=== PATIENT | female | born 1970 | race Caucasian/White ===

== ENCOUNTER 2021-07-31 16:06 | Emergency (ER) | payer OTHER, SELFPAY ==
--- NOTE | ~2021-07-31 | XR_ITS ---
EXAMINATION: XR chest 1V CLINICAL INFORMATION: Shortness of breath COMPARISON: None TECHNIQUE: XR chest 1V Tubes and lines: None Lungs and pleura: Both lungs are clear. Heart and mediastinum: The mediastinum is within normal limits.. Bones/soft tissue: Skeletal structures included are normal for patient's age. XR/XR chest 1V IMPRESSION: Normal chest x-ray.
[2021-07-31 17:38] VITALS: BP 128/64; PULSE 114; RESP 20; TEMP 1002.2; TEMP 539; O2SAT 97; BMI 32.6
[2021-07-31 18:17] LABS: Basophils Absolute Auto 0.1 X10*3/uL (0.0-0.2); Basophils Percent Auto 0.2 % (0-2); Hematocrit 34.1 % (37.0-47.0); Hemoglobin 11.6 g/dl (12.0-16.0); Lymphocytes Absolute Auto 1.5 X10*3/uL (1.2-4.9); Lymphocytes Percent Auto 7.4 % (20-40); MANUAL DIFF FLAG SCAN; Mean Corpuscular Hemoglobin 29.2 pg (27.0-33.0); Mean Corpuscular Volume 85.9 fL (80.0-98.0); Monocytes Absolute Auto 1.6 X10*3/uL (0.1-1.2); Monocytes Percent Auto 7.6 % (2-11); Neutrophils Absolute Auto 17.1 x10*3/uL (2.0-8.3); Neutrophils Percent Auto 83.8 % (45-73); Platelet Count 341 X10*3/uL (160-400); Red Blood Count 3.97 X10*6/uL (4.20-5.50); Red Cell Distribution Width 12.2 % (11.0-16.0); SCAN SMEAR FLAG 1; White Blood Count 20.4 X10*3/uL (4.8-10.8)
[2021-07-31 18:26] LABS: COVID-19 Test Negative (Negative); IDNOW Serial# 9DD0AD1C
[2021-07-31 18:29] LABS: Anion Gap 15 (12-20); Blood Urea Nitrogen 28 mg/dL (9-16); Calcium 8.8 mg/dL (8.4-10.2); Carbon Dioxide 24 mmol/L (22-29); Chloride 100 mmol/L (96-108); Creatinine Clr Calc Pharmacy 62.9; Estimated Glomerular Filt Rate 43; Glucose Random 117 mg/dL (60-115); Potassium 3.4 mmol/L (3.3-5.1); Sodium 136 mmol/L (135-145)
[2021-07-31 18:35] LABS: SLIDE REVIEW VERIFIED
--- NOTE | 2021-07-31 21:46 | ED.GENADULT ---
HPI - General Adult General Chief complaint: Dyspnea Stated complaint: Vomiting/Fever Time Seen by Provider: 07/31/21 21:44 Source: patient Mode of arrival: ambulatory Limitations: no limitations History of Present Illness HPI narrative: Patient has been coughing for last 7 days mostly mucoid phlegm followed by vomiting unable to eat anything solid. ++ fever and chest tightness patient already been vaccinated against COVID no significant abdominal pain urinary complaints no diarrhea no other family member is sick Related Data Previous Rx's Medication Instructions Recorded albuterol sulfate 90 mcg/actuation 2 puff INHALATION Q4-6H PRN #8.5 g 08/01/21 aerosol inhaler (ProAir HFA) cefuroxime axetil 500 mg tablet 500 mg PO BID 10 Days #20 tab 08/01/21 codeine 10 mg-guaifenesin 100 mg/5 10 ml PO Q4-6H PRN #237 ml 08/01/21 mL oral liquid doxycycline hyclate 100 mg tablet 100 mg PO BID #20 tab 08/01/21 Allergies Allergy/AdvReac Type Severity Reaction Status Date / Time latex [LATEX] Allergy Unknown RASH Unverified 05/08/20 15:45 Review of Systems Review of Systems: Yes all other systems are reviewed and are negative [facility] Social History Social History Advance Directives: No Advance Directives Information Provided: No Patient : No Physical Exam Vital Signs: Vital Signs: Last Vital Signs Temp 98.7 F 08/01/21 01:10 Pulse 96 08/01/21 01:10 Resp 18 08/01/21 01:10 BP 123/68 08/01/21 01:10 Pulse Ox 99 08/01/21 01:10 BMI result Body Mass Index 32.6 Appearance: Alert. Oriented X3. No acute distress. Eyes: PERRLA, No Nystagmus ENT: Pharynx normal. Oral Mucosa moist Neck: Normal inspection. Neck supple. CVS: Normal heart rate and rhythm. Pulses normal. Respiratory: No respiratory distress. Prolonged expiration no wheezing/rales/rhonchi Abdomen: Soft and nontender. Bowel sounds are present, no mass palpable, no CVA tenderness Skin: Skin warm and dry. Normal skin color. Normal skin turgor. Extremities: No lower extremity edema. No calf tenderness Neuro: Oriented X 3. No motor deficit. Medical Decision Making MDM Narrative Medical decision making narrative: Patient with bronchitis with fever cough chest x-ray negative COVID negative was given IV Rocephin for increased leukocytosis likely developing pneumonia will discharge patient home on Ceftin and doxycycline advised to follow with PCP not better Lab Data Lab results reviewed: Yes I reviewed the patient's lab results. Result diagrams: 07/31/21 18:04 07/31/21 18:04 Labs: Lab Results 07/31/21 07/31/21 07/31/21 Range/Units 18:04 18:04 18:04 WBC 20.4 H (4.8-10.8) X10*3/uL RBC 3.97 L (4.20-5.50) X10*6/uL Hgb 11.6 L (12.0-16.0) g/dl Hct 34.1 L (37.0-47.0) % MCV 85.9 (80.0-98.0) fL MCH 29.2 (27.0-33.0) pg MCHC 34.0 (31.0-35.0) g/dl RDW 12.2 (11.0-16.0) % Plt Count 341 (160-400) X10*3/uL MPV 11.0 (9.4-12.3) fL Immature Gran % (Auto) 1.0 H (0.0-0.4) % Neut % (Auto) 83.8 H (45-73) % Lymph % (Auto) 7.4 L (20-40) % [place] % (Auto) 7.6 (2-11) % Eos % (Auto) 0.0 (0-4) % Baso % (Auto) 0.2 (0-2) % Lymph # (Auto) 1.5 (1.2-4.9) X10*3/uL [place] # (Auto) 1.6 H (0.1-1.2) X10*3/uL Eos # (Auto) 0.0 (0.0-0.4) X10*3/uL Baso # (Auto) 0.1 (0.0-0.2) X10*3/uL Abs Immat Gran (auto) 0.20 H (0.00-0.03) X10*3/uL Absolute Neuts (auto) 17.1 H (2.0-8.3) x10*3/uL Absolute Nucleated RBC 0.000 (0.0-0.012) X10*3/uL Nucleated RBC % (auto) 0.0 (0.0-0.2) /100WBC Smear Tech's Comments VERIFIED Sodium 136 (135-145) mmol/L Potassium 3.4 (3.3-5.1) mmol/L Chloride 100 (96-108) mmol/L Carbon Dioxide 24 (22-29) mmol/L Anion Gap 15 (12-20) BUN 28 H (9-16) mg/dL Creatinine 1.32 (0.5-1.4) mg/dL Estim Creat Clear Calc 62.9 Estimated GFR 43 Random Glucose 117 H (60-115) mg/dL Calcium 8.8 (8.4-10.2) mg/dL COVID-19 (CARLO) Negative (Negative) COVID-19 Clin Com See Note Discharge Plan Discharge Clinical Impression: Acute bronchitis Qualifiers: Bronchitis organism: unspecified organism Qualified Code(s): J20.9 - Acute bronchitis, unspecified Patient Disposition: Home, Self-Care Instructions: Acute Bronchitis (ED) Additional Instructions: Use albuterol inhaler every 4-6 hours as advised Antibiotic as advised Tylenol/Motrin as advised Follow with PCP if not better Prescriptions: New doxycycline hyclate 100 mg tablet 100 mg PO BID Qty: 20 RF: 0 cefuroxime axetil 500 mg tablet 500 mg PO BID 10 Days Qty: 20 RF: 0 codeine-guaifenesin 10-100 mg/5 mL liquid 10 ml PO Q4-6H PRN (Reason: cough) Qty: 237 RF: 0 albuterol sulfate [ProAir HFA] 90 mcg/actuation HFA aerosol inhaler 2 puff inhalation Q4-6H PRN (Reason: Wheezing) Qty: 8.5 RF: 0
[2021-07-31] MEDS: 0.9 % Sodium Chloride 1,000 ML 999 ML IVCONT (22:40)
[2021-07-31] MEDS: cefTRIAXone sodium 1 GM in 0.9 % Sodium Chloride 50 ML IV (23:13)
[2021-07-31] MEDS: guaiFEN/Codeine SF 200/20/10ML 10 ML LIQUID PO (23:13)
[2021-07-31] MEDS: ondansetron HCL 4 MG/2 ML VIAL IVPUSH (23:13)
[2021-07-31] MEDS: Albuterol/Iprat 2.5/0.5MG 3 ML AMPUL.NEB INHALE (23:20)
[2021-07-31 23:21] VITALS: PULSE 114; O2SAT 97
[2021-07-31 23:48] VITALS: BP 113/71; PULSE 103; RESP 16; TEMP 37.5; O2SAT 98
[2021-08-01 01:10] VITALS: BP 123/68; PULSE 96; RESP 18; TEMP 37.1; O2SAT 99
== END 2021-08-01 01:29 | disposition home or self-care (01) ==
PROVIDERS: Emergency Provider Internal Medicine; PCP Internal Medicine
DX: J20.9 Acute bronchitis, unspecified (principal); R06.02 Shortness of breath; R05.9 Cough, unspecified; Z20.822 Contact with and (suspected) exposure to COVID-19; Z79.899 Other long term (current) drug therapy
CPT/HCPCS: 36415; 71045; 80048; 85025; 87635; 94640; 96365; 96375; 99284; J0696; J2405

== ENCOUNTER 2023-09-07 08:31 | Emergency (ER) | payer MEDICAID, SELFPAY ==
--- NOTE | 2023-09-07 | ECG_ITS ---
Test Reason : CHEST PAIN Blood Pressure : / mmHG Vent. Rate : 074 BPM Atrial Rate : 074 BPM P-R Int : 136 ms QRS Dur : 090 ms QT Int : 394 ms P-R-T Axes : 038 050 011 degrees QTc Int : 437 ms Sinus rhythm with Premature atrial complexes (vs PVC) Otherwise normal ECG No previous ECGs available Referred By: Generic ED Physician Electronically Signed By:SRINI PRECIADO
--- NOTE | ~2023-09-07 | XR_ITS ---
EXAMINATION: XR CHEST CLINICAL INFORMATION: Pain. COMPARISON: Chest 07/31/2021 TECHNIQUE: Frontal view of the chest was obtained. FINDINGS: No significant abnormality is noted involving the heart, lungs, mediastinum, bony thorax or soft tissues. XR/XR chest 1V IMPRESSION: Unremarkable chest examination.
[2023-09-07 08:58] VITALS: BP 148/85; PULSE 79; RESP 20; TEMP 36.4; O2SAT 98; BMI 39.3
[2023-09-07 09:36] LABS: MANUAL DIFF FLAG NO
[2023-09-07 09:39] LABS: Basophils Percent Auto 0.4 % (0-2); Eosinophils Absolute Auto 0.1 X10*3/uL (0.0-0.4); Eosinophils Percent Auto 2.7 % (0-4); Hematocrit 35.2 % (37.0-47.0); Hemoglobin 11.3 g/dl (12.0-16.0); Imm Gran Abs Auto 0.01 X10*3/uL (0.00-0.03); Imm Gran Pct Auto 0.2 % (0.0-0.4); Lymphocytes Absolute Auto 1.5 X10*3/uL (1.2-4.9); Lymphocytes Percent Auto 28.2 % (20-40); Mean Corpuscular HGB Conc 32.1 g/dl (31.0-35.0); Mean Corpuscular Hemoglobin 27.6 pg (27.0-33.0); Mean Corpuscular Volume 85.9 fL (80.0-98.0); Monocytes Absolute Auto 0.3 X10*3/uL (0.1-1.2); Neutrophils Absolute Auto 3.3 x10*3/uL (2.0-8.3); Neutrophils Percent Auto 63.5 % (45-73); Platelet Count 262 X10*3/uL (160-400); Red Cell Distribution Width 12.1 % (11.0-16.0); White Blood Count 5.2 X10*3/uL (4.8-10.8)
[2023-09-07 09:50] LABS: COVID-19 Test Negative (Negative); IDNOW Serial# 152EDE1D
[2023-09-07 09:57] LABS: Alanine Aminotransferase 14 U/L (0-31); Albumin Level 4.1 g/dL (3.5-5.0); Alkaline Phosphatase 79 U/L (39-117); Anion Gap 11 (12-20); Aspartate Amino Transferase 13 U/L (5-31); Bilirubin Total 0.4 mg/dL (0.0-1.0); Blood Urea Nitrogen 14 mg/dL (9-16); Calcium 9.1 mg/dL (8.4-10.2); Carbon Dioxide 26 mmol/L (22-29); Chloride 107 mmol/L (96-108); Creatinine Clr Calc Pharmacy 116.4; Estimated Glomerular Filt Rate > 60; Glucose Random 93 mg/dL (60-115); Magnesium 1.7 mg/dL (1.6-2.6); Potassium 3.8 mmol/L (3.3-5.1); Sodium 140 mmol/L (135-145); Total Protein 7.3 g/dL (6.5-8.0)
[2023-09-07 10:05] LABS: Troponin-I High Sensitivity < 2.7 ng/L (<3.5-17.0)
[2023-09-07 10:42] VITALS: BP 171/75; PULSE 77; RESP 18; TEMP 36.2; O2SAT 97
--- NOTE | 2023-09-07 11:01 | ED_ITS ---
HPI - Chest Pain General Chief Complaint: Chest Pain Stated Complaint: R Arm Pain No Injury Time Seen by Provider: 09/07/23 10:56 Source: patient Mode of arrival: ambulatory Limitations: no limitations History of Present Illness HPI narrative: 53 yo female with PMH of migraines, asthma who notes worsening headaches recently typical of migraines but last night at work she noted R arm pain no numbness or weakness and she just felt off. She is under stress. She has not had her BP checked regularly and has not gone to the doctor in a while. She is cutting down her cigarettes. She denies CP/SOB. She notes she has not been dx with HTN but has strong fam hx. She plans now to follow up with PCP. She walks regularly to work and has no symptoms. BP at work prior to arrival was 180/100s complaint: other (high BP, R arm pain) Onset (ago): day(s) (at work last night.) Timing of current episode: other (improving) Prior episodes: No Onset: during rest Pain location: other (R arm) Pain radiation: none Severity: moderate Quality: aching Relieving factors: nothing Exacerbating factors: nothing Context: other (found to be HTNive at home) Associated symptoms: other (headache L eye photophobia hx of migraines) Treatment prior to arrival: none Related Data Previous Rx's Medication Instructions Recorded albuterol sulfate 90 mcg/actuation 2 puff inhalation Q4-6H PRN 08/01/21 aerosol inhaler (ProAir HFA) Wheezing #8.5 grams cefuroxime axetil 500 mg tablet 500 mg PO BID 10 days #20 tabs 08/01/21 codeine 10 mg-guaifenesin 100 mg/5 10 ml PO Q4-6H PRN cough #237 mL 08/01/21 mL oral liquid doxycycline hyclate 100 mg tablet 100 mg PO BID #20 tabs 08/01/21 blood pressure test kit-large #1 ea 09/07/23 hydrochlorothiazide 12.5 mg tablet 12.5 mg PO DAILY #30 tabs 09/07/23 Allergies Allergy/AdvReac Type Severity Reaction Status Date / Time latex [LATEX] Allergy Unknown RASH Verified 09/07/23 09:05 Review of Systems 2 Review of Systems: Constitutional : No Fever, No Chills, No Fatigue ENT/Mouth : No sore throat, No Rhinorrhea Eyes: No Eye Pain, No Swelling, No Redness Cardiovascular : No Chest Pain, No SOB, No Dyspnea on Exertion Respiratory : No Cough, No Sputum Gastrointestinal : No Nausea, No Vomiting, No Diarrhea, No abdominal Pain Genitourinary : No Dysuria, No Urinary Frequency, No Hematuria, Musculoskeletal : pos joint pain, No Myalgias, No Joint Swelling Skin : No Skin Lesions, No rash Neuro : No Weakness, No Numbness, No Dizziness, positive Headache Psych : No Anxiety/Panic, No Depression All other systems reviewed and are negative [facility] Past Medical History Source: old records reviewed Onset Date is defined in the Problem List Problems that require an onset date and time if occurred within 24 hrs of arrival to the ED Aortic Dissection and Rupture; Neurologic impairment; Cardiopulmonary Arrest; Endotracheal Intubation; Insertion or Replacement of Mechanical Circulatory Assist Device Medical History Migraine Asthma Social History Social History (Updated 09/07/23 @ 11:36 by Sosa José DO) Unable to assess alcohol history related to: Unknown Patient Tobacco Use Status: Current someday Tobacco user Smoked in Last 30 Days: Yes Use of substances other than those prescribed or required for medical reasons: No Advance Directives: No Advance Directives Information Provided: No Patient : No Physical Exam 2 Vital Signs: Vital Signs: Last Vital Signs Temp 98.1 F 09/07/23 11:07 Pulse 76 09/07/23 11:07 Resp 20 09/07/23 11:07 BP 170/82 H 09/07/23 11:07 Pulse Ox 98 09/07/23 11:07 O2 Del Method Room Air 09/07/23 11:07 BMI result Body Mass Index 39.3 Appearance: Alert. Oriented X3. No acute distress. Eyes: Pupils equal, round and reactive to light. ENT: Pharynx normal. Neck: Normal inspection. Neck supple. CVS: Normal heart rate and rhythm. Pulses normal. Respiratory: No respiratory distress. Breath sounds normal. Abdomen: Soft and non-tender. Skin: Skin warm and dry. Normal skin color. Normal skin turgor. Extremities: No lower extremity edema. No calf ttp Neuro: Oriented X 3. No motor deficit. No sensory deficit. Medications Administered Discontinued Medications Generic Name Dose Route Start Last Admin Trade Name Freq PRN Reason Stop Dose Admin Acetaminophen/Butalbital/Caffeine 1 tab 09/07/23 11:19 09/07/23 11:49 Butalb/Acetamin/Caff 50/325/40 Tablet PO 09/07/23 11:20 1 tab ONCE ONE Administration Medical Decision Making Medical Decision Making [facility] Narrative: 53 yo female with PMH of asthma and migraines has not had exertional chest pain or symptoms recently but has had some headaches and stress not feeling her best or following up with her doctor. She has strong fam hx of HTN. At this time has had persistent HTN - she has no signs of end organ damage she is [place] intact. 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 Will start on HCTZ and refer to PCP Differential Diagnosis Differential Diagnoses: The differential diagnosis associated with the presentation includes HTN, arm pain, no neuro deficits doubt stroke, Admission/Observation Consideration of admission/observation: Escalation of care including admission/observation considered testing negative feels better stable for DC Lab Data [facility] Lab Attestation statement: I reviewed the patient's lab results. 09/07/23 09:31 09/07/23 09:31 Labs: Lab Results 09/07/23 09/07/23 Range/Units 09:31 11:19 WBC 5.2 (4.8-10.8) X10*3/uL RBC 4.10 L (4.20-5.50) X10*6/uL Hgb 11.3 L (12.0-16.0) g/dl Hct 35.2 L (37.0-47.0) % MCV 85.9 (80.0-98.0) fL MCH 27.6 (27.0-33.0) pg MCHC 32.1 (31.0-35.0) g/dl RDW 12.1 (11.0-16.0) % Plt Count 262 (160-400) X10*3/uL MPV 10.0 (9.4-12.3) fL Immature Gran % (Auto) 0.2 (0.0-0.4) % Neut % (Auto) 63.5 (45-73) % Lymph % (Auto) 28.2 (20-40) % [place] % (Auto) 5.0 (2-11) % Eos % (Auto) 2.7 (0-4) % Baso % (Auto) 0.4 (0-2) % Lymph # (Auto) 1.5 (1.2-4.9) X10*3/uL [place] # (Auto) 0.3 (0.1-1.2) X10*3/uL Eos # (Auto) 0.1 (0.0-0.4) X10*3/uL Baso # (Auto) 0.0 (0.0-0.2) X10*3/uL Abs Immat Gran (auto) 0.01 (0.00-0.03) X10*3/uL Absolute Neuts (auto) 3.3 (2.0-8.3) x10*3/uL Absolute Nucleated RBC 0.000 (0.0-0.012) X10*3/uL Nucleated RBC % (auto) 0.0 (0.0-0.2) /100WBC Sodium 140 (135-145) mmol/L Potassium 3.8 (3.3-5.1) mmol/L Chloride 107 (96-108) mmol/L Carbon Dioxide 26 (22-29) mmol/L Anion Gap 11 L (12-20) BUN 14 (9-16) mg/dL Creatinine 0.77 (0.5-1.4) mg/dL Estim Creat Clear Calc 116.4 Estimated GFR > 60 Random Glucose 93 (60-115) mg/dL Calcium 9.1 (8.4-10.2) mg/dL Magnesium 1.7 (1.6-2.6) mg/dL Total Bilirubin 0.4 (0.0-1.0) mg/dL AST 13 (5-31) U/L ALT 14 (0-31) U/L Alkaline Phosphatase 79 (39-117) U/L Troponin I High Sens < 2.7 < 2.7 (<3.5-17.0) ng/L Total Protein 7.3 (6.5-8.0) g/dL Albumin 4.1 (3.5-5.0) g/dL COVID-19 (CARLO) Negative (Negative) COVID-19 Clin Com See Note Independent Interpretation I performed an independent interpretation of an: EKG and Plain X-Ray Interpretation: Rate: 74 Rhythm: NSR with PVC [place]: normal Normal P waves. Normal HALLIE. Normal QRS complex. ST T wave : no CARMINE, inverted t wave III qTC: 437 prior studies: no acute ischemia The study has been interpreted contemporaneously by me. . Radiology Impression Discussion of test interpretation with radiology: I have reviewed the radiologist's reading. External Record Review External record reviewed: Inpatient record Prescription Management I considered prescription management with: Other Discharge Plan Discharge Clinical Impression: HTN (hypertension) Qualifiers: Hypertension type: unspecified Qualified Code(s): I10 - Essential (primary) hypertension Arthralgia Qualifiers: Joint pain location: unspecified Qualified Code(s): M25.50 - Pain in unspecified joint Patient Disposition: Home, Self-Care Instructions: Hypertension (ED), Arm Pain (ED) Additional Instructions: FOLLOW UP WITH YOUR DOCTOR - BLOOD PRESSURE NEEDS TO BE MONITORED hold blood pressure medication if your blood pressure is below 100 or you feel dizzy return for worsening pain, confusion, headaches, dizziness, numbness, weakness or any other concerns. check blood pressure in the morning and at night Prescriptions: New hydrochlorothiazide 12.5 mg tablet 12.5 mg PO DAILY Qty: 30 1RF (DME) blood pressure test kit-large Kit See Rx Instructions .Route Qty: 1 0RF Rx Instructions: As directed No Action doxycycline hyclate 100 mg tablet 100 mg PO BID Qty: 20 0RF cefuroxime axetil 500 mg tablet 500 mg PO BID 10 Days Qty: 20 0RF codeine-guaifenesin 10-100 mg/5 mL liquid 10 ml PO Q4-6H PRN (Reason: cough) Qty: 237 0RF albuterol sulfate [ProAir HFA] 90 mcg/actuation HFA aerosol inhaler 2 puff inhalation Q4-6H PRN (Reason: Wheezing) Qty: 8.5 0RF Referrals: Sarah Monroe MD [Primary Care Provider] - (please call to schedule appointment) Stand Alone Forms: Work/School Release
[2023-09-07 11:07] VITALS: BP 170/82; PULSE 76; RESP 20; TEMP 36.7; O2SAT 98
[2023-09-07] MEDS: Butalb/Acetamin/Caff 50/325/40 TABLET 1 TAB PO (11:49)
[2023-09-07 11:51] LABS: Troponin-I High Sensitivity < 2.7 ng/L (<3.5-17.0)
== END 2023-09-07 12:26 | disposition home or self-care (01) ==
PROVIDERS: Emergency Provider Emergency Medicine; PCP Internal Medicine
DX: M25.59 Pain in other specified joint (principal); I10 Essential (primary) hypertension; M79.601 Pain in right arm; F17.210 Nicotine dependence, cigarettes, uncomplicated; Z11.52 Encounter for screening for COVID-19
CPT/HCPCS: 36415; 71045; 80053; 83735; 84484; 85025; 87635; 93005; 99283; 99285

== ENCOUNTER → 2023-09-07 09:26 | Outpatient (BNV) | payer MEDICAID, SELFPAY | PROVIDERS: Emergency Provider Emergency Medicine; PCP Internal Medicine; Visit Provider Internal Medicine | DX: I49.1 Atrial premature depolarization (principal) | CPT/HCPCS: 93010 ==

== ENCOUNTER 2025-07-02 08:48 | Outpatient (REF) | payer OTHER, SELFPAY ==
--- OUTSIDE RECORDS SUMMARY | 2025-06-28 09:00 | XMS_ITS | Encounter Summary ---
Author Organization [facility] Address [address] [facility] 7t [place] [address] Care Team Providers Care Knowledge Analyst Name Role Phone Arlette Sanchez NP Primary Care Provider [phone] Reason for Referral * Imaging (Routine) - Authorized Specialty Diagnoses / Procedures Referred By Wei watson Referred To Contact Radiology Diagnoses Encounter for screening mammogram for malignant neoplasm of breast Procedures BI Mammogram Screening Tomosynthesis Bilateral Arlette Sanchez NP [address] [place] [address] Phone: tel: fax: [address] Phone: tel: fax: Referral ID Status Reason Start Date Expiration Date V isits Requested Visits Authorized [id number] Authorized 06/28/2025 06/28/2026 1 1 Reason for Visit * Reason Comments New patient Encounter Details Date Type Department Care Team (Late st Contact Info) Description 06/28/2025 9:00 AM EST Office Visit [facility] [address] [place] [address] Arlette Sanchez NP [address] [place], [place] [id number] Encounter to establish care with new provider (Primary Dx); Intermittent asthma, unspecified asthma severity, unspecified whether complicated; Screening for colon cancer; Encounter for screening mammogram for malignant neoplasm of breast; Obesity (BMI 30-39.9); Elevated blood pressure reading in office without diagnosis of hypertension; Encounter for health-related screening; Dietary counseling; Exercise counseling; Class 2 obesity due to excess calories without serious comorbidity with body mass index (BMI) of 36.0 to 36.9 in adult; Anxiety and depression; Nasal congestion Social History Tobacco Use Types Packs/Day Years Used Date Smoking Tobacco: Former Cigarettes 0.5 10 Smokeless Tobacco: Never Tobacco Cessation:Counseling Given: Not Answered Alcohol Use Standard Drinks/Week Comments Yes 3 (1 standard drink = 0.6 oz pur e alcohol) Alcohol Answer Date Recorded How often do you have a drink containing alcohol ? 2 06/28/2025 How many drinks containing a lcohol do you have on a typical day when you are drinking? 1 06/28/2025 How often do you have six or more drinks on one occasion? 1 06/28/2025 Depression Answer Date Recorded Patient Health Questionnaire-9 Score 18 06/28/2025 Patient Health Questionnaire-9 Score 18 06/28/2025 Last PHQ-9: Questionnaire Data Not on file 1 08/28/2024 Housing Stability Answer Date Recorded What is your housing situation today? I do not have housing (Staying with others, in a hotel, in a nursing home, living outside on the street, on a beach, in a car, or in a park 06/28/[address] you li ve. Do you have problems with any of the following? Pests such as bugs, ants, or mice;Mold;Inadequate heat 06/28/2025 Food Insecurity Answer Date Recorded Within the past 12 months, y ou worried that your food would run out before you got money to buy more: Often true 06/28/2025 Within the past 12 months,th e food you bought just didn't last and you didn't have enough money to get more: Often true 02/2025 Transportation Answer Date Recorded In the past 12 months, has l ack of transportation kept you from medical appts, meetings, work or from getting things needed for daily living? Yes, it has kept me from medical appointments or getting medications. 06/28/2025 Utilities Answer Date Recorded In the past 12 months, has t he electric, gas, oil or water company threatened to shut off services in your home? Yes 06/28/2025 Depression Answer Date Recorded Patient Health Questionnaire-2 Score 5 06/28/2025 Internet Access Answer Date Recorded Internet Access Q1 Yes 06/28/2025 Internet Access Q2 Not on file 06/28/2025 Comments No Sex and Gender Information Value Date Recorded Sex Assigned at Female 06/06/2025 1:01 PM EDT Legal Sex Female 10:59 AM EST Gender Identity Female 06/06/2025 1:01 PM EDT Sexual Orientation Straight 06/27/2025 8: 42 AM EST documented as of this encounter Last Filed Vital Signs Vital Sign Reading Time Taken Comments Blood Pressure 140/82 06/28/2025 10:09 AM EST Pulse 89 06/28/2025 9:04 AM EST Temperature 37.2 C (99 F) 06/28/2025 9:04 AM EST Respiratory Rate 22 06/28/2025 9:04 AM EST Oxygen Saturation 96% 06/28/2025 9:04 AM EST Inhaled Oxygen Concentration - - Weight 108 kg (238 lb 9.6 oz) 06/28/2025 9:04 AM EST Height 172.7 cm (5' 8 ) 06/28/2025 9:04 AM EST Body Mass Index 36.28 06/28/2025 9:04 AM EST documented in this encounter Functional Status * Over the past 2 weeks, how often have you been bothered by any of the following problems? Question Answer Date of Assessment Author Patient Health Questionnaire -2 Score 5 06/28/2025 9:[address] [place] * Little interest or pleasure in doing things Answer Date of Assessment Author More than half the days 06/28/2025 9:07 [address] [place] * Feeling down, depressed, or hopeless Answer Date of Assessment Author Nearly every day 06/28/2025 9:[address] [place] * Trouble falling or staying asleep, or sleeping too much Answer Date of Assessment Author Nearly every day 06/28/2025 9:[address] [place] * Feeling tired or having little energy Answer Date of Assessment Author More than half the days 06/28/2025 9:07 AM [address] [place] * Poor appetite or overeating Answer Date of Assessment Author Nearly every day 06/28/2025 9:[address] [place] * Feeling bad about yourself - or that you are a failure or have let yourself or your family down Answer Date of Assessment Author Nearly every day 06/28/2025 9:[address] [place] * Trouble concentrating on things, such as reading the newspaper or watching television Answer Date of Assessment Author More than half the days 06/28/2025 9:07 AM [address] Sutton [place] * Moving or speaking so slowly that other people could have noticed? Or the opposite - being so fidgety or restless that you have been moving around a lot more than usual. Answer Date of Assessment Author Not at all 06/28/2025 9:[address] [place] * Thoughts that you would be better off or hurting yourself in some way Answer Date of Assessment Author Not at all 06/28/2025 9:[address] [place] * Patient Health Questionnaire-9 Score Answer Date of Assessment Author 18 06/28/2025 9:[address] [place] * How difficult have these problems made it for you to do your work, take care of things at home, or get along with other people? Answer Date of Assessment Author Somewhat difficult 06/28/2025 9:07 AM P[address]r Alvarez [place] * Over the last 2 weeks, how often have you been bothered by any of the following problems? Question Answer Date of Assessment Author Feeling nervous, anxious, or on edge 2 06/28/2025 9:[address] [place] Not being able to stop or co ntrol worrying 3 06/28/2025 9:[address] [place] Worrying too much about diff erent things 3 06/28/2025 9:[address] [place] Trouble relaxing 3 06/28/2025 9:08 AM [address] [place] Being so restless that it is hard to sit still 0 06/28/2025 9:[address] [place] Becoming easily annoyed or irritable 2 06/28/2025 9:[address] [place] Feeling afraid as if somethi ng awful might happen 1 06/28/2025 9:[address] [place] ENRRIQUE-7 Total Score 14 06/28/2025 9:[address] [place] documented as of this encounter Plan of Treatment Upcoming Encounters Date Type Department Care Team (Late st Contact Info) Description 07/15/2025 1:30 PM EST Clinical Support [facility] [address] [place] [phone] 08/05/2025 10:15 AM EST Office Visit [facility] [address] [place] [address] Arlette Sanchez NP [address] [place] [address] Scheduled Orders Name Type Priority Associated Diagnoses Orde r Schedule BI Mammogram Screening Tomosynthesis Bilateral Imaging Routine Encounter for screening mammogram for malignant neoplasm of breast Expected: 06/28/2025, Expires: 08/28/2026 Cologuard colon cancer screening Lab Routine Screening for colon cancer Ordered: 06/28/2025 Lipid Panel, Standard Lab Routine Obesity (BMI 30-39.9) Expected: 06/28/2025 (Approximate), Expires: 06/28/2026 Comprehensive Metabolic Panel Lab Routine Obesity (BMI 30-39.9) Expected: 06/28/2025 (Approximate), Expires: 06/28/2026 Hemoglobin A1c Lab Routine Obesity (BMI 30-39.9) Expected: 06/28/2025 (Approximate), Expires: 06/28/2026 TSH W/Reflex to FT4 Lab Routine Obesity (BMI 30-39.9) Expected: 06/28/2025 (Approximate), Expires: 06/28/2026 Hepatitis B Core Antibody, Total Lab Routine Encounter for health-related screening Expected: 06/28/2025 (Approximate), Expires: 06/28/2026 Hepatitis B Surface Antibody, Qualitative Lab Routine Encounter for health-related screening Expected: 06/28/2025 (Approximate), Expires: 06/28/2026 Hepatitis B surface antigen, EIA Lab Routine Encounter for health-related screening Expected: 06/28/2025 (Approximate), Expires: 06/28/2026 documented as of this encounter Visit Diagnoses Diagnosis Encounter to establish care with new provider- Primary Intermittent asthma, unspecified asthma severity, unspecified whether complicated Screening for colon cancer Special screening for malignant neoplasms, colon Encounter for screening mammogram for malignant neoplasm of breast Obesity (BMI 30-39.9) Elevated blood pressure reading in office without diagnosis of hypertension Encounter for health-related screening Dietary counseling Dietary surveillance and counseling Exercise counseling Class 2 obesity due to excess calories without serious comorbidity with body mass index (BMI) of 36.0 to 36.9 in adult Anxiety and depression Nasal congestion Other diseases of nasal cavity and sinuses documented in this encounter Additional Health Concerns Assessment Noted Time PHQ-9 Depression Total Score: 18 025 9:07 AM EST documented as of this encounter Care Teams Knowledge Analyst Relationship Specialty Start Date End Date Arlette Sanchez NP [address] [place] [phone] PCP - General Family Medicine 06/28/25 documented as of this encounter
--- OUTSIDE RECORDS SUMMARY | 2025-07-02 09:02 | XMS_ITS | Encounter Summary ---
Author Organization [employer] Address [address] 7[address] [place] [address] Care Team Providers Care Floors Buffer Name Role Phone Arlette Sanchez NP Primary Care Provider Reason for Visit * Reason Onset Date Comments Med Refill 06/26/2025 Encounter Details Date Type Department Care Team ([facility] st Contact Info) Description 06/26/2025 Refill [facility] [address] [place] [address] Arlette Sanchez NP [address] [place] [address] Social History Tobacco Use Types Packs/Day Years Used Date Smoking Tobacco: Never Smokeless Tobacco: Never Alcohol Use Standard Drinks/Week Comments Never 0 (1 standard drink = 0.6 oz pur [...] with others, in a hotel, in a senior living, living outside on the street, on a [...] Access Q2 Not on file 06/28/2025 Comments Unknown Sex and Gender Information Value Date Recorded Sex Assigned at Female 06/06/2025 1:01 PM EDT Legal Sex Female 10:59 AM EST Gender Identity Female 06/06/2025 1:01 PM EDT Sexual Orientation Straight 06/27/2025 8: 42 AM EST documented as of this encounter Functional Status * Over the past 2 weeks, how often have you been bothered by any of the following problems? Question Answer Date of Assessment Author Patient Health Questionnaire -2 Score 5 06/28/2025 9:07 AM EST Piotr Jacobs [place] * Little interest or pleasure in [...] to sit still 0 06/28/2025 9:08 AM EST Piotr Jacobs [place] Becoming easily annoyed or irritable 2 06/28/2025 9:[address] [place] Feeling afraid as if somethi ng awful might happen 1 06/28/2025 9:[address] [place] ENRRIQUE-7 Total Score 14 06/28/2025 9:[address] [place] documented as of this encounter Miscellaneous Notes * Telephone Encounter - Jasmin Venegas LPN - 06/26/2025 1:00 PM EST Transmission to pharmacy failed (06/26/2025 12:58 PM EST) documented in this encounter Plan of Treatment Upcoming Encounters Date Type Department Care Team (Late st Contact Info) Description 07/15/2025 1:30 PM EST Clinical Support [facility] [address] [place] [phone] 08/05/2025 10:15 AM EST Office Visit [facility] [address] [place] [address] Arlette Sanchez NP [address] [place] [address] documented as of this encounter Visit Diagnoses Not on filedocumented in this encounter Care Teams Floors Buffer Relationship Specialty Start Date End Date Arlette Sanchez NP [address] [place] [address] PCP - General Family Medicine 06/28/25 documented as of this encounter
--- OUTSIDE RECORDS SUMMARY | 2025-07-02 09:02 | XMS_ITS | Patient Health Record ---
Author Organization [facility] Address [address] [place] [address] Support Name Relationship Address Phone SAL CAROLINE Guarantor Unknown [phone] Reason For Referral No Information Medications Medication SIG (Take, Route, Fr equency, Duration) Notes Start Date End Date Status Flovent HFA 110MCG 2 INHALED twice fely y; Duration: -3 Albert-MJ 10/06/2011 Active Imitrex 25MG ORAL; Duration: -3 Albert-MJ 10/06/2011 Active ProAir HFA 90MCG 2 Inhalation four ti mes daily; Duration: -3 Albert-MJ 10/06/2011 Active Plan Of Treatment No Information Insurance Providers Payer Name Payer Address Payer Phone Subscriber Number Group Number Insured Name Patient Relationship to Insured Coverage Start Date Coverage End Date [facility] [employer] [facility] [address] [address] [place] [address] [id number] CAROLINE HUANG Self - patient is the insured
--- OUTSIDE RECORDS SUMMARY | 2025-07-02 09:02 | XMS_ITS | Encounter Summary ---
Author Organization [employer] Address [address] 7[address] [place] [address] Care Team Providers Care Cna Ltc Name Role Phone Arlette Sanchez JIGNESH Primary Care Provider [phone] Encounter Details Date Type Department Care Team (Latest Contact Info) Description 06/28/2025 Travel Social History Tobacco Use Types Packs/Day Years Used Date Smoking Tobacco: Former Cigarettes 0.5 10 Smokeless Tobacco: Never Alcohol Use Standard Drinks/Week Comments Yes 3 [...] with others, in a hotel, in a penitentiary, living outside on the street, on a [...] awful might happen 1 06/28/2025 9:08 AM EST Piotr Jacobs [place] ENRRIQUE-7 Total Score 14 06/28/2025 9:08 AM EST Piotr Jacobs [place] documented as of this encounter Plan of Treatment Upcoming Encounters Date Type Department Care Team (Late st Contact Info) Description 07/15/2025 1:30 PM EST Clinical Support [address] [address] 08/05/2025 10:15 AM EST Office Visit [address] [address] Arlette Sanchez NP [address] [place] [address] documented as of this encounter Visit Diagnoses Not on filedocumented in this encounter Additional Health Concerns Assessment Noted Time PHQ-9 Depression Total Score: 18 025 9:07 AM EST documented as of this encounter Care Teams Cna Ltc Relationship Specialty Start Date End Date Arlette Sanchez NP [address] [place] [address] PCP - General Family Medicine 06/28/25 documented as of this encounter
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
--- OUTSIDE RECORDS SUMMARY | 2025-07-02 09:02 | XMS_ITS | Encounter Summary ---
Author Organization [employer] Address [address] [place] [address] Care Team Providers Care Marketing Assistant Manager Name Role Phone Unavailable Primary Care Provider Unavailabl e Reason for Visit * Reason Onset Date Comments chart prep 06/27/2025 Encounter Details Date Type Department Care Team ([facility] st Contact Info) Description 06/27/2025 Telephone [facility] [address] [place] [address] Perri Orozco MA chart prep Social History Tobacco Use Types Packs/Day Years [...] with others, in a hotel, in a retirement, living outside on the street, on a [...] AM EST documented as of this encounter Miscellaneous Notes * Telephone Encounter - Perri Orozco MA - 06/27/2025 1:31 PM EST Chart Prep Labs: not applicable Images: not applicable Referrals: not applicable Vaccines due: Covid, Flu, Tdap, Hep B, Td, Zoster, and DTAP Screenings: colonoscopy, mammogram, pap smear, and LMP Overdue care gaps: SBIRT, SDOH, PHQ-9, ENRRIQUE-7, Oral health screening, and Disability screen documented in this encounter Plan of Treatment Upcoming Encounters Date Type Department Care Team (Late st Contact Info) Description 07/15/2025 1:30 PM EST Clinical Support [facility] [address] [place] [phone] 08/05/2025 10:15 AM EST Office Visit [facility] [address] [place] [address] Arlette Sanchez NP [address] [place] [address] documented as of this encounter Visit Diagnoses Not on filedocumented in this encounter
== END 2025-07-02 08:49 | disposition home or self-care (01) ==
LOC: HO.MAMMO 08:48
PROVIDERS: PCP Nurse Practitioner; Visit Provider Nurse Practitioner
DX: Z12.31 Encounter for screening mammogram for malignant neoplasm of breast (principal)
CPT/HCPCS: 77063; 77067

== ENCOUNTER → 2025-07-02 09:15 | Outpatient (BNV) | payer OTHER, SELFPAY | PROVIDERS: PCP Nurse Practitioner; Visit Provider Internal Medicine | DX: Z12.31 Encounter for screening mammogram for malignant neoplasm of breast (principal) | CPT/HCPCS: 77063; 77067 ==

== ENCOUNTER 2025-07-22 13:31 | Outpatient (REF) | payer OTHER, SELFPAY ==
[2025-07-22 16:53] LABS: Alanine Aminotransferase 22 U/L (0-31); Albumin Level 4.4 g/dL (3.5-5.0); Alkaline Phosphatase 85 U/L (39-117); Anion Gap 11 (12-20); Aspartate Amino Transferase 49 U/L (5-31); Blood Urea Nitrogen 22 mg/dL (9-16); Calcium 9.0 mg/dL (8.4-10.2); Carbon Dioxide 25 mmol/L (22-29); Chloride 110 mmol/L (96-108); Cholesterol 176 mg/dL (<200); Estimated Glomerular Filt Rate > 60; HDL Cholesterol 37 mg/dL (>40); Potassium 4.0 mmol/L (3.3-5.1); Sodium 142 mmol/L (135-145); Total Protein 7.5 g/dL (6.5-8.0); Triglycerides 170 mg/dL (<150)
--- OUTSIDE RECORDS SUMMARY | 2025-07-22 17:05 | XMS_ITS | Encounter Summary ---
Author Organization [employer] Address [address] [place] [address] Care Team Providers Care Health Insurance Assessor Name Role Phone Arlette Sanchez NP Primary Care Provider [phone] Encounter Details Date Type Department Care Team (Latest Contact Info) Description 07/18/2025 Results Follow-Up [facility] [address] [place] [address] Arlette Sanchez NP [address] [place] [address] BI Mammogram Screening Tomosynthesis Bilateral Social History Tobacco Use Types Packs/Day Years [...] with others, in a hotel, in a detention, living outside on the street, on a [...] AM EST documented as of this encounter Plan of Treatment Upcoming Encounters Date Type Department Care Team (Late st Contact Info) Description 08/05/2025 10:15 AM EST Office Visit [facility] [address] [place] [address] Arlette Sanchez NP [address] [place] [address] 08/21/2025 10:00 AM EST Procedure Visit [facility] [address] [place] [address] Arlette Sanchez NP [address] [place] [address] documented as of this encounter Visit Diagnoses Not on filedocumented in this encounter Additional Health Concerns Assessment Noted Time PHQ-9 Depression Total Score: 18 025 9:07 AM EST documented as of this encounter Care Teams Health Insurance Assessor Relationship Specialty Start Date End Date Arlette Sanchez NP [address] [place] [phone] PCP - General Family Medicine 06/28/25 documented as of this encounter
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
--- OUTSIDE RECORDS SUMMARY | 2025-07-22 17:05 | XMS_ITS | Encounter Summary ---
Author Organization [employer] Address [address] [place] [address] Care Team Providers Care Licensed Surveyor Name Role Phone Arlette Sanchez NP Primary Care Provider [phone] Encounter Details Date Type Department Care Team (Late st Contact Info) Description 07/22/2025 Telephone [facility] [address] [place] [address] Arlette Sanchez NP [address] [place] [address] Social History Tobacco Use Types Packs/Day Years [...] with others, in a hotel, in a [facility], living outside on the street, on a [...] Description 08/05/2025 10:15 AM EST Office Visit [facility] [address] [place] [address] Arlette Sanchez NP [address] [place] [address] 08/21/2025 10:00 AM EST Procedure Visit [facility] [address] [place] [address] Arlette Sanchez NP [address] [place] [address] documented as of this encounter Visit Diagnoses Not on filedocumented in this encounter Additional Health Concerns Assessment Noted Time PHQ-9 Depression Total Score: 18 025 9:07 AM EST documented as of this encounter Care Teams Licensed Surveyor Relationship Specialty Start Date End Date Arlette Sanchez NP [address] [place] [address], [place] [address] PCP - General Family Medicine 06/28/25 documented as of this encounter
[2025-07-23 08:16] LABS: HBS Num1 5.11 mIU/mL (0-7.99); HBc Num1 0.11 S/CO (0.00-0.79); HBsAGNum1 0.48 S/CO (0.00-0.99); Hepatitis B Surface Antigen Negative (Negative); ~Hepatitis B Surface Antibody NONREACTIVE (Nonreactive)
== END 2025-07-22 13:32 | disposition home or self-care (01) ==
LOC: HO.HHCL 13:31
PROVIDERS: PCP Nurse Practitioner; Visit Provider Nurse Practitioner
DX: Z11.59 Encounter for screening for other viral diseases (principal); E66.9 Obesity, unspecified
CPT/HCPCS: 36415; 80053; 80061; 83036; 84443; 86704; 86706; 87340

== ENCOUNTER 2025-08-21 14:24 | Outpatient (REF) | payer OTHER, SELFPAY ==
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
--- OUTSIDE RECORDS SUMMARY | 2025-08-21 15:33 | XMS_ITS | Encounter Summary ---
Author Organization [employer] Address [address] [place] [address] Care Team Providers Care Barrel Inspector Tight Name Role Phone Arlette Sanchez NP Primary Care Provider Reason for Visit * Reason Onset Date Comments CHARTPREP 08/20/2025 Encounter Details Date Type Department Care Team ([facility] Contact Info) Description 08/20/2025 Telephone [facility] MEDICINE [address] [place] [address] Arlette Sanchez NP [address] [place] [address] CHARTPREP Social History Tobacco Use Types Packs/Day Years [...] with others, in a hotel, in a intermediate, living outside on the street, on a [...] encounter Miscellaneous Notes * Telephone Encounter - Piotr Jacobs [place] - 08/20/2025 3:06 PM EST Chart Prep Labs: done except Cologuard and BMP Images: done Referrals: 09/08/2024 Referral documentation sent to [address] [address] . Letter with agency contact information will be mailed/sent. Vaccines due: Covid, Flu, Hep B, RSV, and Zoster Screenings: colonoscopy,HIV screening,Hep C screening Overdue care gaps: Oral health screening documented in this encounter Plan of Treatment Upcoming Encounters Date Type Department Care Team ([facility] Contact Info) Description 11/06/2025 11:30 AM EDT Office Visit [facility] MEDICINE [address] [place] [address] Arlette Sanchez NP [address] [place] [address] documented as of this encounter Visit Diagnoses Not on filedocumented in this encounter Additional Health Concerns Assessment Noted Time PHQ-9 Depression Total Score: 18 025 9:07 AM EST documented as of this encounter Care Teams Barrel Inspector Tight Relationship Specialty Start Date End Date Arlette Sanchez NP [address] [place] [address] PCP - General Family Medicine 06/28/25 documented as of this encounter
--- OUTSIDE RECORDS SUMMARY | 2025-08-21 15:33 | XMS_ITS | Patient Health Record ---
Author Organization [employer] [facility] Address [address] [place] [address] Support Name Relationship Address Phone HUANG, CAROLINE Guarantor Unknown [phone] Reason For Referral No Information Medications Medication [...] Insured Coverage Start Date Coverage End Date [facility] [employer] [facility] [address] [address] [place] [address] [id number] CAROLINE HUANG Self - patient is the insured
--- OUTSIDE RECORDS SUMMARY | 2025-08-21 15:33 | XMS_ITS | Encounter Summary ---
Author Organization [employer] Address [address] [place] [address] Care Team Providers Care Director Informatics Name Role Phone Arlette Sanchez NP Primary Care Provider [phone] Encounter Details Date Type Department Care Team (Latest Contact Info) Description 07/18/2025 Results Follow-Up [facility] MEDICINE [address] [place] [address] Arlette Sanchez NP [address] [place] [address] BI Mammogram Screening Tomosynthesis Bilateral, Lipid Panel, Standard, Comprehensive Metabolic Panel, Additional followed-up results: 5 Social History Tobacco Use Types Packs/Day Years [...] Description 11/06/2025 11:30 AM EDT Office Visit [facility] MEDICINE [address] [place] [address] Arlette Sanchez NP [address] [place] [address] documented as of this encounter Visit Diagnoses Not on filedocumented in this encounter Additional Health Concerns Assessment Noted Time PHQ-9 Depression Total Score: 18 025 9:07 AM EST documented as of this encounter Care Teams Director Informatics Relationship Specialty Start Date End Date Arlette Sanchez NP [address] [place] [address] PCP - General Family Medicine 06/28/25 documented as of this encounter
--- OUTSIDE RECORDS SUMMARY | 2025-08-21 15:33 | XMS_ITS | Encounter Summary ---
Author Organization [employer] Address [address] [place] [address] Care Team Providers Care Aerial Hurricane Hunter Name Role Phone EnochArlette barker JIGNESH Primary Care Provider [phone] Encounter Details Date Type Department Care Team (Latest Contact Info) Description 08/21/2025 Travel Social History Tobacco Use Types Packs/Day [...] with others, in a hotel, in a fdc, living outside on the street, on a [...] Description 11/06/2025 11:30 AM EDT Office Visit [facility] MEDICINE [address] [place] [address] Arlette Sanchez NP [address] [place] [address] documented as of this encounter Visit Diagnoses Not on filedocumented in this encounter Additional Health Concerns Assessment Noted Time PHQ-9 Depression Total Score: 18 025 9:07 AM EST documented as of this encounter Care Teams Aerial Hurricane Hunter Relationship Specialty Start Date End Date Arlette Sanchez NP [address] [place] [address] PCP - General Family Medicine 06/28/25 documented as of this encounter
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
== END 2025-08-21 14:25 | disposition home or self-care (01) ==
LOC: HO.HHCLNP 14:24
PROVIDERS: Visit Provider Nurse Practitioner
DX: Z12.4 Encounter for screening for malignant neoplasm of cervix (principal)
CPT/HCPCS: 87626; 88175